=== PATIENT | female | born 1955 | race Caucasian/White ===

== ENCOUNTER → 2016-07-15 | Outpatient (CLI) | payer BC ==
[2016-07-15 16:23] LABS: HEMATOCRIT 44.6 % (37.0-47.0); HEMOGLOBIN 15.2 g/dL (12.0-16.0); MEAN CORPUSCULAR HGB CONC 34.1 g/dL (33-37); MEAN PLATELET VOLUME 9.9 FL (7.4-12.2); RDW COEFFICIENT OF VARIATION 13.9 % (11.5-14.5); RED BLOOD COUNT 4.9 10^6/uL (4.20-5.40); WHITE BLOOD COUNT 7.52 10^3/uL (4.8-10.8)
--- NOTE | 2016-07-16 08:12 | DI ---
VENOUS DOPPLER ULTRASOUND OF THE LEFT LOWER EXTREMITY, 07/15/2016 4:19 PM: Clinical History: History of deep vein thrombosis. The patient has May-Thurner syndrome. The patient has apparently had stenting of the left common iliac vein. Previous Exam: 10/31/2015. Technique: 2D real-time imaging is supplemented with color Doppler ultrasound. Compression and augmen tation maneuvers were performed. The superficial femoral vein from Jamar's canal to the groin shows evidence of prior thrombosis with partial recanalization. Similar changes are present in the poplitea l vein. There is no evidence of acute clot. No collateral channels are visualized. The greater saphen ous vein is normal. Readin. The deep venous system from the groin to the popliteal fossa shows evidence of old thrombosis wit h partial recanalization. No abnormal collateral channels are identified. No new clot is noted. 2. The greater saphenous vein is patent.
== END ==
LOC: US 16:08
PROVIDERS: ATTEND Surgery
DX: K57.32 Diverticulitis of large intestine without perforation or abscess without bleeding (principal); Z86.718 Personal history of other venous thrombosis and embolism; F17.210 Nicotine dependence, cigarettes, uncomplicated
CPT/HCPCS: 36415; 85027; 93971

== ENCOUNTER 2016-10-28 10:30 | Emergency (ER) | payer BC ==
--- NOTE | 2016-10-28 10:50 | PDOC ---
Headache HPI - General Chief Complaint: Headache Stated Complaint: Has had a headache for the past 5 days Date Seen by Provider: 10/28/16 Time Seen by Provider: 10:50 Source: POSITIVE: Patient Exam Limitations: POSITIVE: No limitations Nurse's Notes Reviewed & Considered: Yes - Patient Home Medications Home Medications: Home Medications Calcium Carbonate/Vitamin D3 [Calcium 600 + Vit D 200 Tablet] 1 tab PO QD tab 02/13/15 Lysine [L-Lysine] 500 mg PO QD tab 09/17/15 Albuterol Sulfate [Proair Hfa] 1 - 2 puff INH Q4H #1 inhaler 04/29/16 Dabigatran Etexilate Mesylate [Pradaxa] 150 mg PO BID #180 cap 04/29/16 Diclofenac Sodium 75 mg PO BID #180 tab 04/29/16 Montelukast Sodium 1 tab PO DAILY #90 tab 04/29/16 Pantoprazole Sodium [Protonix] 1 tab PO DAILY #90 tab 04/29/16 Clotrimazole/Betamethasone Dip [Lotrisone Cream] 0.5 gm TOPICAL BID #1 tube Gabapentin 1 tab PO TID #270 tab 07/09/16 Dexlansoprazole [Dexilant] 60 mg PO DAILY #90 cap 07/15/16 Cefuroxime Axetil [Cefuroxime] 500 mg PO BID #28 tab 10/11/16 Methylprednisolone [Medrol] 4 mg PO 3-4XD #1 packet 10/11/16 - Patient Allergies Allergies/Adverse Reactions: Allergies Allergy/AdvReac Type Severity Reaction Status Date / Time divalproex sodium Allergy Intermediate Anaphylaxis Verified 10/28/16 10:36 [From Depakote] doxycycline calcium Allergy Intermediate HIVES Verified 10/28/16 10:36 [From Vibramycin] doxycycline hyclate Allergy Intermediate HIVES Verified 10/28/16 10:36 [From Vibramycin] doxycycline monohydrate Allergy Intermediate HIVES Verified 10/28/16 10:36 [From Vibramycin] hydrocodone Allergy Intermediate NAUSEA Verified 10/28/16 10:36 tramadol Allergy Intermediate HIVES Verified 10/28/16 10:36 acetaminophen [From Percocet] Allergy Mild HIVES Verified 10/28/16 10:36 codeine Allergy Mild HIVES Verified 10/28/16 10:36 oxycodone HCl [From Percocet] Allergy Mild HIVES Verified 10/28/16 10:36 Penicillins Allergy Mild Anaphylaxis Verified 10/28/16 10:36 erythomycine base Allergy Mild Anaphylaxis Uncoded 10/28/16 10:36 Headache Progress - Results Reviewed by me Xrays/CTs/US Reviewed by me: Yes Discussed with Radiologist: Yes Lab Results Reviewed: Yes Lab Results:: Laboratory Results 10/28/16 Range/Units 10:55 WBC 7.06 (4.8-10.8) 10^3/uL RBC 4.64 (4.20-5.40) 10^6/uL Hgb 14.2 (12.0-16.0) g/dL Hct 42.3 (37.0-47.0) % MCV 91.2 (81-99) FL MCH 30.6 (27-31) PG MCHC 33.6 (33-37) g/dL RDW Std Deviation 47.7 (39-50) fL RDW Coeff of Yanick 14.7 H (11.5-14.5) % Plt Count 350 (140-350) 10*3/uL MPV 10.2 (7.4-12.2) FL Immature Gran % (Auto) 0 (0-5) % Neut % (Auto) 61.4 (50-80) % Lymph % (Auto) 26.1 (10-50) % Carroll % (Auto) 5.7 (5-15) % Eos % (Auto) 4.7 (0-8) % Baso % (Auto) 2.1 H (0-1) % Immature Gran # (Auto) 0 10*3/UL Neut # (Auto) 4.34 10*3/UL Lymph # (Auto) 1.84 10*3/uL Carroll # (Auto) 0.40 (0.3-0.8) 10*3/UL Eos # (Auto) 0.33 10*3/UL Baso # (Auto) 0.15 10*3/UL WBC Morphology Comment Normal morphology (NORM) Plt Morphology Comment Normal morphology (NORM) RBC Morph Comment Normal morphology (NORM) PT 11.4 (9.7-11.4) secs INR 1.10 (0.00-5.90) N/A Sodium 139 (135-145) meq/L Potassium 3.8 (3.8-5.2) meq/L Chloride 104 (98-112) meq/L Carbon Dioxide 24 (23-33) meq/L Anion Gap 11 (5-20) BUN 16 (7-22) mg/dL Creatinine 0.7 (0.50-1.20) mg/dL Estimated GFR > 60 (>60 ml/min/1.73m(2)) BUN/Creatinine Ratio 22.85 H (6-20) Glucose 106 (78-110) mg/dL Calculated Osmolality 288.0 (267-292) mOsm/kg Calcium 9.3 (8.7-10.7) mg/dL Magnesium 1.7 (1.6-2.4) mg/dL Total Bilirubin 0.5 (0.3-1.2) mg/dL AST 25 (8-39) IU/L ALT 30 (9-52) IU/L Alkaline Phosphatase 65 (38-126) IU/L C-Reactive Protein < 0.5 (0.0-0.9) mg/dL Total Protein 7.3 (6.1-8.0) g/dL Albumin 4.2 (3.5-4.8) g/dL Globulin 3.1 (2.50-4.10) g/dL Albumin/Globulin Ratio 1.30 (1.3-2.0) mg/g TSH 0.903 (0.2700-4.2000) uIU/mL Free T4 1.35 (0.93-1.71) ng/dL - Patient's Progress Pain Medication Addressed: POSITIVE: Yes Re-Examine Time:: 13:23 Status: POSITIVE: Improved, Pain Almost Comp Relieved MDM / ED Course: Patient was evaluated, IV started, blood drawn and sent to the lab for studies, radiographic examinations were obtained. Patient received a liter of normal saline, Compazine, Benadryl, magnesium sulfate, Toradol, dexamethasone, Ativan, and Dilaudid. Her headache has resolved. Findings: MRI without contrast shows no acute intracranial abnormalities. Laboratory Findings are unremarkable which include CBC, comprehensive metabolic panel, TSH. Assessment: Migraine headache. Plan: Discharge home. Follow up with primary care physician calling tomorrow for follow-up appointment. Return to the emergency room if return of symptoms. - Consult Counseled: POSITIVE: Patient, Family, RE: Lab Results, RE: Radiology Results, RE : DX, RE: Need for F/U Patient Care Time - Estimated PCT Patient Care Time (In Minutes): 45 Vital Signs - Recent Vital Signs Vital Signs: Vital Signs (Last 8 hours) Temp Pulse Resp BP Pulse Ox 10/28/16 12:45 70 18 118/57 98 10/28/16 11:45 97.0 F 68 18 121/56 95 10/28/16 10:30 97.0 F 92 18 124/64 95 - VS Reviewed Vital Signs Reviewed: Yes Discharge Clinical Impression: Migraine Discharge Disposition: Discharged to Home Condition: Stable Patient Instructions Given at Discharge: Migraine Headache (ED)
[2016-10-28 10:51] VITALS: RESP 18; TEMP 97
[2016-10-28] MEDS ORDERED: Sodium Chloride 0.9% 1,000 ML PRIMARY IV ONE (10:55)
[2016-10-28] MEDS ORDERED: Prochlorperazine Edisylate Inj 10mg/2ml vial IVP ONE (10:55)
[2016-10-28] MEDS ORDERED: diphenhydrAMINE 50 MG/1 ML VIAL IVP ONE (10:55)
[2016-10-28] MEDS ORDERED: DEXAMETHASONE PF 10 MG/1 ML VIAL IV ONE (10:55)
[2016-10-28] MEDS ORDERED: Magnesium Sulfate 2gm (Premix) 2 GM in Premix 1 BAG IV ONE (10:55)
[2016-10-28] MEDS ORDERED: KETOROLAC 15 MG/1 ML VIAL IVP ONE (10:58)
[2016-10-28 11:15] LABS: BASOPHILS # (AUTO) 0.15 10*3/UL; BASOPHILS % (AUTO) 2.1 % (0-1); EOSINOPHILS # (AUTO) 0.33 10*3/UL; EOSINOPHILS % (AUTO) 4.7 % (0-8); HEMATOCRIT 42.3 % (37.0-47.0); HEMOGLOBIN 14.2 g/dL (12.0-16.0); LYMPHOCYTES # (AUTO) 1.84 10*3/uL; MEAN CORPUSCULAR HEMOGLOBIN 30.6 PG (27-31); MEAN CORPUSCULAR HGB CONC 33.6 g/dL (33-37); MEAN CORPUSCULAR VOLUME 91.2 FL (81-99); MEAN PLATELET VOLUME 10.2 FL (7.4-12.2); MONOCYTES % (AUTO) 5.7 % (5-15); NEUTROPHILS # (AUTO) 4.34 10*3/UL; NEUTROPHILS % (AUTO) 61.4 % (50-80); PLATELET MORPHOLOGY COMMENT NORMAL MORPHOLOGY (NORM); RBC MORPHOLOGY COMMENT NORMAL MORPHOLOGY (NORM); RED BLOOD COUNT 4.64 10^6/uL (4.20-5.40); WBC MORPHOLOGY COMMENT NORMAL MORPHOLOGY (NORM)
[2016-10-28 11:24] LABS: BLOOD UREA NITROGEN 16 mg/dL (7-22); BUN/CREATININE RATIO 22.85 (6-20); CALCIUM 9.3 mg/dL (8.7-10.7); EST GLOMERULAR FILTRATION > 60 (>60 ml/min/1.73m(2)); MAGNESIUM 1.7 mg/dL (1.6-2.4); SERUM ALBUMIN 4.2 g/dL (3.5-4.8)
[2016-10-28 11:25] LABS: C-REACTIVE PROTEIN < 0.5 mg/dL (0.0-0.9)
--- NOTE | 2016-10-28 11:51 | DI ---
MRI BRAIN W/O CN,10/28/2016 10:59 AM: Clinical History: Stroke Previous Exam: None at this facility. Findings: Multiplanar MR images are obtained through the brain without contrast, and demonstrate normal, symmet criselda ventricles and other CSF containing spaces. There is no mass, hemorrhage or midline shift. There is no abnormally increased signal on diffusion weighted images. There is no areas of abnormal FLAIR signal. Midline structures are unremarkable. The posterior fossa is unremarkable. Visualized portions of the upper cervical spine are also unremarkable. Sella region and pituitary are unremarkable. The paranasal sinuses are unremarkable. Impression: Normal MRI brain for age.
[2016-10-28 12:02] LABS: FREE T4 (FREE THYROXINE) 1.35 ng/dL (0.93-1.71)
[2016-10-28] MEDS ORDERED: HYDROmorphone 2 MG/1 ML IVP ONE (12:23)
[2016-10-28] MEDS ORDERED: LORazepam 2 MG/1 ML VIAL IVP ONE (12:53)
== END 2016-10-28 13:50 | disposition home or self-care (01) ==
LOC: ER 10:30
DX: G43.009 Migraine without aura, not intractable, without status migrainosus (principal)
CPT/HCPCS: 70551; 80053; 83735; 84439; 84443; 85025; 85610; 86140; 96361; 96365; 96375; 99283 ×2; J1200; J0780; J1100; J1170; J1885; J2060; J3475; J7030

== ENCOUNTER → 2016-11-10 | Outpatient (CLI) | payer BC ==
--- NOTE | 2016-11-10 13:24 | DI ---
XR CXR 2VW PA/LAT,11/10/2016 11:17 AM: Clinical History: Left-sided rib pain Previous Exam: None at this facility. Findings: PA and lateral views of the chest are obtained, and demonstrate clear lungs. The cardiomediastinum an d bony thorax are unremarkable. There is a IVC filter noted as well as postsurgical clips consistent with cholecystectomy. Impression: No acute disease.
== END ==
LOC: MOB RAD 11:22
PROVIDERS: ATTEND Family Medicine
DX: R07.81 Pleurodynia (principal); F17.200 Nicotine dependence, unspecified, uncomplicated
CPT/HCPCS: 71020

== ENCOUNTER → 2016-12-22 | Outpatient (CLI) | payer BC ==
[2016-12-22 10:08] LABS: BLOOD UREA NITROGEN 19 mg/dL (7-22); BUN/CREATININE RATIO 23.75 (6-20); CALCIUM 9.2 mg/dL (8.7-10.7); EST GLOMERULAR FILTRATION > 60 (>60 ml/min/1.73m(2)); MAGNESIUM 1.8 mg/dL (1.6-2.4); PHOSPHORUS 3.4 mg/dl (2.4-4.3)
== END ==
LOC: LAB 09:28
PROVIDERS: ATTEND Family Medicine
DX: M81.0 Age-related osteoporosis without current pathological fracture (principal); F17.200 Nicotine dependence, unspecified, uncomplicated
CPT/HCPCS: 36415; 80048; 83735; 84100

== ENCOUNTER → 2017-02-01 | Outpatient (CLI) | payer BC ==
[2017-02-01 13:40] LABS: BLOOD UREA NITROGEN 16 mg/dL (7-22); CALCIUM 9.3 mg/dL (8.7-10.7); EST GLOMERULAR FILTRATION > 60 (>60 ml/min/1.73m(2)); SERUM ALBUMIN 4.5 g/dL (3.5-4.8)
== END ==
LOC: LAB 12:29
PROVIDERS: ATTEND Family Medicine
DX: M79.1 Myalgia (principal); R53.83 Other fatigue
CPT/HCPCS: 36415; 80053; 82306; 84443; 85652